=== PATIENT | female | born 1995 | race African-American/Black ===

== ENCOUNTER 2016-12-24 13:09 | Emergency (ER) | payer OTHER ==
[2016-12-24 13:16] VITALS: BP 113/68; PULSE 78; TEMP 97.7; BMI 29.8
--- NOTE | 2016-12-24 14:12 | PDOC ---
History of Present Illness - General Chief Complaint: Back Pain Stated Complaint: BACK PAIN Time Seen by Provider: 12/24/16 14:11 History Source: Patient Exam Limitations: No Limitations - History of Present Illness Initial Comments: 12/24/16 14:26 Chief complaint: Right sided back pain from under shoulder blade to lower back since yesterday with muscle spasms History of present illness: She is a 21-year-old female with no significant medical history here today complaining of right-sided lower back pain from under her shoulder blade down to to her lower back without radiation down her legs. 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 Patient denies any radiation of pain down the legs or any saddle anesthesia or any incontinency. Patient reports that she's had this in the past. Patient reports that she feels spasming of the muscle on her right side of her back. Patient did not take anything for pain today. Patient reports that she took some Aleve yesterday with minimal relief of pain. Occurred: reports: yesterday Severity: reports: moderate Pain Location: reports: back (rt. sided from under thoracic to lumb) Method of Injury: Yes: other (lifting heavy bags at work ) Modifying Factors: improves with: None Loss of Consciousness: no loss of consciousness Associated Symptoms (Fall): muscle spasms (rt. paraspinal muscles thoracic to lumbar) Past History - Past Medical History Allergies/Adverse Reactions: Allergies Allergy/AdvReac Type Severity Reaction Status Date / Time No Known Allergies Allergy Verified 12/24/16 13:16 Home Medications: Ambulatory Orders Cyclobenzaprine HCl [Flexeril 10 mg] 10 mg PO Q8H PRN #20 tablet 12/24/16 Naproxen [Naprosyn -] 500 mg PO BID PRN #14 tablet 12/24/16 Asthma: No Cancer: No Cardiac Disorders: No Diabetes: No HTN: No Seizures: No Thyroid Disease: No - Psycho/Social/Smoking Cessation Hx Anxiety: No Suicidal Ideation: No Smoking History: Never smoked Have you smoked in the past 12 months: No Hx Alcohol Use: No Drug/Substance Use Hx: No Substance Use Type: None Hx Substance Use Treatment: No Review of Systems - Review of Systems Able to Perform ROS?: Yes Constitutional: No: Symptoms Reported HEENTM: No: Symptoms Reported Respiratory: No: Symptoms reported Cardiac (ROS): No: Symptoms Reported ABD/GI: No: Symptoms Reported : No: Symptoms Reported Musculoskeletal: Yes: Back Pain (right sided back pain with muscle spasm thoracic to lumbar) Integumentary: No: Symptoms Reported Neurological: No: Symptoms reported *Physical Exam - Vital Signs Last Vital Signs Temp Pulse Resp BP Pulse Ox 97.7 F 78 18 113/68 99 12/24/16 13:14 12/24/16 13:14 12/24/16 13:14 12/24/16 13:14 12/24/16 13:14 - Physical Exam General Appearance: Yes: Appropriately Dressed Respiratory/Chest: positive: Lungs Clear, Normal Breath Sounds. negative: Chest Tender, Respiratory Distress Cardiovascular: positive: Regular Rhythm, Regular Rate, S1, S2 Musculoskeletal: positive: Normal Inspection, Decreased Range of Motion (from waist ), Muscle Spasm (rt. paraspinal muscles fom thoracic to lumbar). negative : CVA Tenderness, CVA Tenderness (R), CVA Tenderness (L), Vertebral Tenderness Integumentary: positive: Normal Color Neurologic: positive: Alert, Normal Response, Motor Strength 5/5 (legs b/l ), Respond to painful stimul (b/l ), Other (negative SLR b/l ). negative: Numbness , Sensory Deficit Medical Decision Making - Medical Decision Making 12/24/16 14:30 She is a 21-year-old female with no significant medical history here today complaining of right-sided lower back pain from under her shoulder blade down to to her lower back without radiation down her legs. 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 Patient denies any radiation of pain down the legs or any saddle anesthesia or any incontinency. Patient reports that she's had this in the past. Patient reports that she feels spasming of the muscle on her right side of her back. Patient did not take anything for pain today. Patient reports that she took some Aleve yesterday with minimal relief of pain. rt. sided back pain from thoracic to lumbar with spasms of pain from spinal muscle PLAN: Urine hCG negative flexeril 10 mg po now than every 8 hrs prn muscle spasm naprosyn 500 mg po now than q 12 hrs prn pain follow up with ortho 12/24/16 14:56 12/24/16 15:01 *DC/Admit/Observation/Transfer Diagnosis at time of Disposition: Back pain Qualifiers: Back pain location: low back pain Chronicity: acute Back pain laterality: right Sciatica presence: without sciatica Qualified Code(s): M54.5 - Low back pain Acute thoracic back pain Qualifiers: Back pain laterality: right Qualified Code(s): M54.6 - Pain in thoracic spine - Discharge Dispostion Disposition: HOME Condition at time of disposition: Stable - Prescriptions Prescriptions: Cyclobenzaprine HCl [Flexeril 10 mg] 10 mg PO Q8H PRN #20 tablet PRN Reason: Moderate Pain Naproxen [Naprosyn -] 500 mg PO BID PRN #14 tablet PRN Reason: Pain - Referrals Referrals: Kenji Jones MD [Staff Physician] - - Patient Instructions Additional Instructions: Avoid any strenuous activity or lifting anything Follow-up with orthopedist if pain continues this week Return to emergency room if symptoms worsen any numbness of the legs or groin Patient voiced understanding of discharge instructions and all questions were answered
[2016-12-24] MEDS ORDERED: CYCLOBENZAPRINE HCL 10 MG TABLET (FP) PO ONE (14:52)
[2016-12-24] MEDS ORDERED: NAPROXEN 500 MG TABLET (FP) PO ONE (14:52)
[2016-12-24] MEDS ORDERED: NAPROXEN 500 MG TABLET (FP) ONE (14:54)
[2016-12-24] MEDS ORDERED: CYCLOBENZAPRINE HCL 10 MG TABLET (FP) ONE (14:54)
== END 2016-12-24 15:04 | disposition home or self-care (01) ==
LOC: JERFT 13:09
DX: M54.5 Low back pain (principal); X50.0XXA Overexertion from strenuous movement or load, initial encounter; Y93.89 Activity, other specified; Y92.512 Supermarket, store or market as the place of occurrence of the external cause; Y99.0 Civilian activity done for income or pay
CPT/HCPCS: 84703; 99281-25

== ENCOUNTER 2017-02-20 13:19 | Emergency (ER) | payer OTHER ==
[2017-02-20 13:23] VITALS: BP 130/76; PULSE 90; TEMP 98; BMI 29.9
[2017-02-20] MEDS ORDERED: DEXAMETHASONE 4 MG TABLET (FP) PO STA (13:58)
[2017-02-20] MEDS ORDERED: DEXAMETHASONE SOD PHOSPHATE 10 MG/1 ML VIAL ONE (14:02)
--- NOTE | 2017-02-20 14:09 | PDOC ---
[id number] 4d THROAT PAIN Time Seen by Provider: 02/20/17 13:44 History Source: Patient Exam Limitations: No Limitations - History of Present Illness Initial Comments: 02/20/17 14:02 c/o sore throat enlarged tonsils for one week. Pt states often has tonsilar stones and enlarged tonsils. no fever, no diff swallowing. Timing/Duration: 1 week Severity: mild Past History - Past Medical History Allergies/Adverse Reactions: Allergies Allergy/AdvReac Type Severity Reaction Status Date / Time No Known Allergies Allergy Verified 02/20/17 13:22 Home Medications: Ambulatory Orders Cyclobenzaprine HCl [Flexeril 10 mg] 10 mg PO Q8H PRN #20 tablet 12/24/16 Naproxen [Naprosyn -] 500 mg PO BID PRN #14 tablet 12/24/16 Asthma: No Cancer: No Cardiac Disorders: No Diabetes: No HTN: No Seizures: No Thyroid Disease: No - Psycho/Social/Smoking Cessation Hx Anxiety: No Suicidal Ideation: No Smoking History: Never smoked Have you smoked in the past 12 months: No Information on smoking cessation initiated: No Hx Alcohol Use: No Drug/Substance Use Hx: No Substance Use Type: Alcohol Hx Substance Use Treatment: No Review of Systems - Review of Systems Able to Perform ROS?: Yes Is the patient limited Armenian proficient: No Constitutional: No: Symptoms Reported HEENTM: Yes: See HPI Respiratory: No: See HPI Cardiac (ROS): No: Symptoms Reported ABD/GI: No: Symptoms Reported : No: Symptoms Reported Musculoskeletal: No: Symptoms Reported Integumentary: No: Symptoms Reported Neurological: No: Symptoms reported *Physical Exam - Vital Signs Last Vital Signs Temp Pulse Resp BP Pulse Ox 98 F 90 18 130/76 100 02/20/17 13:22 02/20/17 13:22 02/20/17 13:22 02/20/17 13:22 02/20/17 13:22 - Physical Exam General Appearance: Yes: Nourished, Appropriately Dressed HEENT: positive: EOMI, MINGO, TMs Normal, Tonsillar Erythema, Other (right tonsilar stone) Neck: positive: Supple, Lymphadenopathy (L) Respiratory/Chest: positive: Lungs Clear, Normal Breath Sounds Cardiovascular: positive: Regular Rhythm, Regular Rate Gastrointestinal/Abdominal: positive: Normal Bowel Sounds, Soft Musculoskeletal: positive: Normal Inspection Extremity: positive: Normal Capillary Refill, Normal Inspection, Normal Range of Motion Integumentary: positive: Normal Color, Dry, Warm Neurologic: positive: Fully Oriented, Alert, Normal Mood/Affect, Normal Response , Motor Strength 5/5 Medical Decision Making - Medical Decision Making 02/20/17 14:03 cc: 21 yr female with tonsils enlarged no fever, no diff swallowing or speaking will swab for strep decadron for swelling follow up with ENT 02/20/17 14:50 negative strep 02/21/17 17:15 *DC/Admit/Observation/Transfer Diagnosis at time of Disposition: Acute tonsillitis Qualifiers: Pharyngitis/tonsillitis etiology: unspecified etiology Qualified Code(s): J03.90 - Acute tonsillitis, unspecified - Discharge Dispostion Disposition: HOME Condition at time of disposition: Good - Referrals Referrals: Merlin Becker MD [Staff Physician] - - Patient Instructions Additional Instructions: follow with the ENT float nurse for follow up gargle with warm salt water 4-5 times a day sour lemon candies area also helpful take motrin as needed the steroid given today will last for the next 3 days and will help with swelling Return if any worsening symptoms - Post Discharge Activity Work/School Note: Back to Work
== END 2017-02-20 14:55 | disposition home or self-care (01) ==
LOC: JERFT 13:19
DX: J03.90 Acute tonsillitis, unspecified (principal)
CPT/HCPCS: 87070; 87077; 87430; 99281-25

== ENCOUNTER 2018-01-18 17:02 | Emergency (ER) | payer OTHER ==
[2018-01-18 17:06] VITALS: BP 137/81; PULSE 98; TEMP 99.3; BMI 30.2
[2018-01-18] MEDS ORDERED: ALBUTEROL SO4 2.5/IPRATROPIUM 0.5 INH SOL 3 ML VIAL.NEB. NEB ONE ×3 (17:08→20:00)
--- NOTE | 2018-01-18 17:08 | PDOC ---
Rapid Medical Evaluation Time Seen by Provider: 01/18/18 17:03 Medical Evaluation: Allergies Allergy/AdvReac Type Severity Reaction Status Date / Time No Known Allergies Allergy Verified 01/18/18 17:03 01/18/18 17:03 The patient presents with a chief complaint of: 5 days of sore throat, headache , productive cough and chest pain. Chest pain reproducible with cough. Feels " a little short of breath". I have performed a brief in-person evaluation of this patient; Pertinent physical exam findings: ambulatory, in no respiratory distress. Lung sounds clear, but a little tight. I have ordered the following: Duoneb The patient will proceed to the ED for further evaluation.
[2018-01-18] MEDS ORDERED: IBUPROFEN 600 MG TABLET (FP) PO ONE ×2 (19:12→19:13)
[2018-01-18] MEDS ORDERED: predniSONE 20 MG TABLET (UD) ONE (19:12)
[2018-01-18] MEDS ORDERED: predniSONE 20 MG TABLET (UD) PO ONE (19:13)
[2018-01-18] MEDS ORDERED: ALBUTEROL SO4 0.083% IH SOL 2.5 MG/3 ML VIAL.NEB. NEB ONE ×2 (19:13→19:41)
--- NOTE | 2018-01-18 19:19 | PDOC ---
History of Present Illness - General Chief Complaint: Cold Symptoms Stated Complaint: CHEST PAIN Time Seen by Provider: 01/18/18 17:03 History Source: Patient Exam Limitations: No Limitations - History of Present Illness Initial Comments: 01/18/18 19:14 Here with complaints of cough, chills, pleuritic chest pain 5 days. States has not had known fever however has felt warm. Has no phlegm but cough is progressively worsening. mild sore throat pain. He has excessive posterior sinus drainage. No one else at home is sick. 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 Timing/Duration: reports: getting worse Severity: reports: mild, moderate Modifying Factors: improves with: activity Associated Symptoms: reports: denies symptoms, cough, dizziness, fever/chills, nasal congestion, nasal drainage Past History - Travel Traveled outside of the country in the last 30 days: No Close contact w/someone who was outside of country & ill: No - Past Medical History Allergies/Adverse Reactions: Allergies Allergy/AdvReac Type Severity Reaction Status Date / Time No Known Allergies Allergy Verified 01/18/18 17:03 Home Medications: Ambulatory Orders Albuterol 0.083% Nebulizer María [Ventolin 0.083% Nebulizer Soln -] 1 neb NEB Q4H PRN #30 vial 01/18/18 NK [No Known Home Medication] 01/18/18 predniSONE [Deltasone -] 20 mg PO BID #8 tablet 01/18/18 Asthma: No Cancer: No Cardiac Disorders: No COPD: No DVT: No Diabetes: No HTN: No Seizures: No Thyroid Disease: No - Suicide/Smoking/Psychosocial Hx Smoking History: Never smoked Have you smoked in the past 12 months: No Information on smoking cessation initiated: No Hx Alcohol Use: No Drug/Substance Use Hx: No Substance Use Type: Alcohol Hx Substance Use Treatment: No Review of Systems - Review of Systems Able to Perform ROS?: Yes Is the patient limited Pakistani proficient: Yes Constitutional: Yes: Symptoms Reported, See HPI, Fever, Loss of Appetite, Malaise HEENTM: Yes: Symptoms Reported, See HPI, Nose Congestion, Throat Pain Respiratory: Yes: Symptoms reported, See HPI, Cough, Orthopnea, Wheezing ABD/GI: No: Symptoms Reported : No: Symptoms Reported All Other Systems: Reviewed and Negative *Physical Exam - Vital Signs Last Vital Signs Temp Pulse Resp BP Pulse Ox 99.3 F 98 H 18 137/81 100 01/18/18 17:04 01/18/18 17:04 01/18/18 17:04 01/18/18 17:04 01/18/18 17:04 - Physical Exam General Appearance: Yes: Nourished, Appropriately Dressed, Apparent Distress, Mild Distress HEENT: positive: MINGO, Normal ENT Inspection, TMs Normal, Pharynx Normal Neck: positive: Supple Respiratory/Chest: positive: Lungs Clear, Normal Breath Sounds, Wheezing (right into toward expiratory breath sounds, deep inspiration reproduces cough that is moist nonproductive.) Gastrointestinal/Abdominal: positive: Normal Bowel Sounds, Soft. 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, Fully Oriented, Alert, Normal Mood/ Affect, Normal Response, Motor Strength 02/23 ED Treatment Course - Medications Given in the ED: ED Medications Discontinued Medications Generic Name Dose Route Start Last Admin Trade Name Andie PRN Reason Stop Dose Admin Albuterol/Ipratropium 1 amp 01/18/18 17:08 01/18/18 17:09 Duoneb - NEB 01/18/18 17:09 1 amp ONCE ONE Administration Progress Note - Progress Note Progress Note: Upper respiratory infection, probable viral area will treat with DuoNeb nebs and short course of prednisone *DC/Admit/Observation/Transfer Diagnosis at time of Disposition: Upper respiratory infection, viral - Discharge Dispostion Disposition: HOME Condition at time of disposition: Stable Admit: No - Referrals - Patient Instructions Printed Discharge Instructions: DI for Viral Upper Respiratory Infection -- Adult Additional Instructions: Rest, drink lots of fluids: Teas, water, soups, Pedialyte Saltwater gargles Steamy showers/seem to face break up mucus Avoid contact with others until fevers and cough resolved Lots of handwashing and good hygiene Continue [id number] medications for symptomatic relief Tylenol or Motrin for fever and pain Continue albuterol nebulizers every 4-6 hours for the next 2 days then as needed for continued cough Prednisone as directed until completed Followup with private physician in one to 2 days Return to emergency department / pediatric hospital for worsened symptoms, fevers, dehydration - Post Discharge Activity Forms/Work/School Notes: Back to Work
== END 2018-01-18 20:03 | disposition home or self-care (01) ==
LOC: JERFT 17:02
PROC: 3E0F7GC Introduction of Other Therapeutic Substance into Respiratory Tract, Via Natural or Artificial Opening (ICD-10-PCS; principal; 2018-01-18)
DX: J06.9 Acute upper respiratory infection, unspecified (principal); B97.89 Other viral agents as the cause of diseases classified elsewhere
CPT/HCPCS: 99281-25

== ENCOUNTER 2018-07-26 16:17 | Emergency (ER) | payer OTHER ==
--- NOTE | 2018-07-26 16:32 | PDOC ---
Rapid Medical Evaluation Chief Complaint: Pain, Acute Time Seen by Provider: 07/26/18 16:31 Medical Evaluation: Allergies Allergy/AdvReac Type Severity Reaction Status Date / Time No Known Allergies Allergy Verified 07/26/18 16:31 07/26/18 16:32 I have performed a brief in person evaluation of this patient The patient presents with a chief complaint of 9/10 R shoulder pain for a day, denies trauma. Pertinent physical exam findings: In NAD, Pain with ROM R shoulder. Good radial pulse I have ordered the following: R shoulder xray, UCG The patient will proceed to the ED for further eval 07/26/18 16:34 Discharge Disposition - Diagnosis Shoulder pain, right - Referrals - Patient Instructions - Post Discharge Activity
[2018-07-26 16:47] VITALS: BP 118/77; PULSE 94; TEMP 98.3; BMI 30.2
--- NOTE | 2018-07-26 16:50 | PDOC ---
History of Present Illness - General Chief Complaint: Pain, Acute Stated Complaint: RT ARM PAIN Time Seen by Provider: 07/26/18 16:31 History Source: Patient Exam Limitations: No Limitations - History of Present Illness Initial Comments: CHIEF COMPLAINT: 23 y/o afebrile female with atraumatic right shoulder pain since yesterday. HISTORY OF PRESENT ILLNESS: She states that with certain movements she gets a pain in her right shoulder that radiates up to her neck. She denies trauma, fall, numbness/tingling. Vital signs on arrival are within normal limits. REVIEW OF SYSTEMS: GENERAL/CONSTITUTIONAL: No fever/chills. No weakness. No weight change. MUSCULOSKELETAL: +right shoulder pain. +right sided neck pain. No back pain. SKIN: No rash or easy bruising. NEUROLOGIC: No headache, vertigo, loss of consciousness, or loss of sensation. PHYSICAL EXAM: VITAL_SIGNS: within normal limits GENERAL_APPEARANCE: alert, cooperative, no obvious discomfort. MENTAL_STATUS: speech clear, oriented X 3, responds appropriately to questions. NEURO: motor intact and sensory intact in injured extremity. EXTREMITIES: good pulse in injured extremity. Full flexion, extension, abduction and adduction of right arm. No pain with palpation of right AC joint. No obvious deformity or displacement. Pain reproduced with palpation of right trap muscle. SKIN: warm, dry, good color. Past History - Past Medical History Allergies/Adverse Reactions: Allergies Allergy/AdvReac Type Severity Reaction Status Date / Time No Known Allergies Allergy Verified 07/26/18 16:35 Home Medications: Ambulatory Orders NK [No Known Home Medication] 07/26/18 Asthma: No Cancer: No Cardiac Disorders: No CVA: No COPD: No DVT: No Diabetes: No HTN: No Seizures: No Thyroid Disease: No - Suicide/Smoking/Psychosocial Hx Smoking History: Never smoked Have you smoked in the past 12 months: No Information on smoking cessation initiated: No Hx Alcohol Use: No Drug/Substance Use Hx: No Substance Use Type: Alcohol Hx Substance Use Treatment: No *Physical Exam - Vital Signs Last Vital Signs Temp Pulse Resp BP Pulse Ox 98.3 F 94 H 16 118/77 100 07/26/18 16:31 07/26/18 16:31 07/26/18 16:31 07/26/18 16:31 07/26/18 16:31 Medical Decision Making - Medical Decision Making A/P: 23 y/o female with musculoskeletal pain of right neck/shoulder. Plan is as follows: 1. hcg 2. Xray right shoulder hcg - negative xray right shoulder IMPRESSION: No acute right shoulder pathology. Patient was given results. Suggested she ice area, take ibuprofen for pain and stretch. The patient verbalizes understanding of all instructions, has no further questions and is awaiting discharge. *DC/Admit/Observation/Transfer Diagnosis at time of Disposition: Shoulder pain, right Qualifiers: Chronicity: acute Qualified Code(s): M25.511 - Pain in right shoulder - Discharge Dispostion Disposition: HOME Condition at time of disposition: Good - Referrals - Patient Instructions Printed Discharge Instructions: DI for Shoulder Sprain, How To Perform RICE ( Rest, Ice, Compress, Elevate) Additional Instructions: Discharge Instructions: -The xray of your shoulder was normal -You pulled a muscle in your neck and shoulder -Take 600mg of over the counter Ibuprofen every 6 hours for pain if needed -Follow RICE instructions - Post Discharge Activity Forms/Work/School Notes: Back to Work
== END 2018-07-26 17:25 | disposition home or self-care (01) ==
LOC: JER 16:17
DX: M25.511 Pain in right shoulder (principal)
CPT/HCPCS: 73030-TC-RT-FY; 84703; 99281-25

== ENCOUNTER 2019-02-08 12:45 | Emergency (ER) | payer OTHER ==
[2019-02-08 12:51] VITALS: BP 112/72; PULSE 93; TEMP 98.7; BMI 32.0
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
== END 2019-02-08 13:42 | disposition home or self-care (01) ==
LOC: JER 12:45 → JERFT 12:45
DX: S50.02XA Contusion of left elbow, initial encounter (principal); V86.59XA Driver of other special all-terrain or other off-road motor vehicle injured in nontraffic accident, initial encounter; Y93.89 Activity, other specified; Y92.89 Other specified places as the place of occurrence of the external cause; Y99.8 Other external cause status
CPT/HCPCS: 73070-TC-LT-FY; 99281-25

== ENCOUNTER 2020-06-29 12:48 | Emergency (ER) | payer OTHER ==
[2020-06-29 12:52] VITALS: BP 136/85; PULSE 71; TEMP 98.6; BMI 33.0
[2020-06-29] MEDS ORDERED: METHOCARBAMOL 500 MG TABLET PO ONE (12:54)
--- NOTE | 2020-06-29 12:54 | PDOC ---
Rapid Medical Evaluation Chief Complaint: Back Pain Time Seen by Provider: 06/29/20 12:50 Medical Evaluation: Allergies Allergy/AdvReac Type Severity Reaction Status Date / Time No Known Allergies Allergy Verified 06/29/20 12:50 06/29/20 12:52 I have performed a brief in-person evaluation of this patient. The patient presents with a chief complaint of: left lower back x 2 days which she describes as spasm. had similar episode last year and MRI done here was normal. has not taken anything for pain. Denies radiculopathy Pertinent physical exam findings: mild TTP to left paravertebral of Lumbar spine I have ordered the following: Toradol, Robaxin The patient will proceed to the ED for further evaluation. Discharge Disposition - Diagnosis Back pain Qualifiers: Back pain location: low back pain Chronicity: acute Back pain laterality: left Sciatica presence: without sciatica Qualified Code(s): M54.5 - Low back pain - Discharge Dispostion Condition at time of disposition: Stable - Referrals - Patient Instructions - Post Discharge Activity
[2020-06-29] MEDS ORDERED: KETOROLAC TROMETHAMINE 30 MG/1 ML VIAL IM ONE (12:55)
[2020-06-29] MEDS ORDERED: KETOROLAC TROMETHAMINE 30 MG/1 ML VIAL ONE (13:21)
[2020-06-29] MEDS ORDERED: METHOCARBAMOL 500 MG TABLET ONE (13:21)
--- NOTE | 2020-06-29 13:24 | PDOC ---
History of Present Illness - General Chief Complaint: Back Pain Stated Complaint: BACK PAIN Time Seen by Provider: 06/29/20 12:50 History Source: Patient Exam Limitations: No Limitations - History of Present Illness Initial Comments: 06/29/20 13:19 25 year old female with no significant medical or surgical history present with left lower back pain x 3 days. 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 Described pain is sharp and non radiating into buttocks or lower leg. Took advil yesterday for pain with some relief, states pain is worse today preventing her from walking. Denies fall, heavy lifting or injury. Also states no burning, frequency with urination and no retention of urine. Had same pain one year ago, seen by neurologist, had cat scan and mri with normal results. Has follow up neurology exam scheduled. Occurred: reports: other (3 days ago ) Severity: reports: moderate Pain Location: reports: back Method of Injury: Yes: unknown Modifying Factors: improves with: immobilization, pain medication Loss of Consciousness: no loss of consciousness Associated Symptoms (Fall): muscle spasms Past History - Travel History Traveled outside of the country in the last 30 days: No Close contact w/someone who was outside of country & ill: No - Medical History Allergies/Adverse Reactions: Allergies Allergy/AdvReac Type Severity Reaction Status Date / Time No Known Allergies Allergy Verified 06/29/20 12:50 Home Medications: Ambulatory Orders Ibuprofen 600 mg PO QID #20 tablet 06/29/20 Methocarbamol [Robaxin -] 750 mg PO QID #12 tablet 06/29/20 Asthma: No Cancer: No Cardiac Disorders: No CVA: No COPD: No DVT: No Diabetes: No HTN: No Seizures: No Thyroid Disease: No - Reproductive History Is Patient Now?: No - Immunization History Immunization Up to Date: No - Psycho-Social/Smoking History Smoking History: Never smoked Have you smoked in the past 12 months: No - Substance Abuse Hx (Audit-C & DAST Scrn) How often the patient has a drink containing alcohol: Never Score: In Men: 4 or > Positive; In Women: 3 or > Positive: 0 Screen Result (Pos requires Nsg. Audit-10AR): Negative In the last yr the pt used illegal drug/Rx for NonMed reason: No Score: Yes response is considered Positive: 0 Screen Result (Positive result requires Nsg. DAST-10): Negative Trauma Specific PMHX - Complaint Specific PMHX Arthritis: No Back Injury: No Neck Injury: No Hx Sacro Iliac Joint Dysfunction: No Review of Systems - Review of Systems Able to Perform ROS?: Yes Is the patient limited Thai proficient: No Constitutional: No: Chills, Fever HEENTM: No: Nose Congestion, Tinnitus, Hearing Loss, Throat Pain Respiratory: No: Orthopnea, Shortness of Breath, Wheezing Cardiac (ROS): No: Edema, Lightheadedness ABD/GI: No: Abdominal Distended, Nausea, Poor Appetite, Vomiting Musculoskeletal: Yes: Back Pain, Muscle Pain, Muscle Weakness Integumentary: No: Bruising Neurological: No: Numbness, Paresthesia *Physical Exam - Vital Signs Last Vital Signs Temp Pulse Resp BP Pulse Ox 98.6 F 71 20 136/85 100 06/29/20 12:50 06/29/20 12:50 06/29/20 12:50 06/29/20 12:50 06/29/20 12:50 - Physical Exam General Appearance: Yes: Nourished. No: Appropriately Dressed HEENT: positive: Pharynx Normal Neck: positive: Supple. 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 Discharge - Discharge Information Problems reviewed: Yes Clinical Impression/Diagnosis: Back pain Qualifiers: Back pain location: low back pain Chronicity: acute Back pain laterality: left Sciatica presence: without sciatica Qualified Code(s): M54.5 - Low back pain Condition: Stable Disposition: HOME - Admission No - Additional Discharge Information Prescriptions: Ibuprofen 600 mg PO QID #20 tablet Methocarbamol [Robaxin -] 750 mg PO QID #12 tablet - Follow up/Referral - Patient Discharge Instructions Patient Printed Discharge Instructions: DI for Low Back Pain Additional Instructions: Activity as tolerated May apply warm compress 4 times daily Take medication as prescribed follow up with neurologist as previously scheduled. - Post Discharge Activity Work/Back to School Note: Back to Work
[2020-06-29 13:53] LABS: EPI CELLS >36 /uL (0-25.1); HYALINE CASTS 5 /uL (0-3.1); PH,URINE 6.5 (5.0-8.0); URINE APPEARANCE CLOUDY; URINE BACTERIA 657 /uL (0-1359); URINE BILIRUBIN NEGATIVE (NEGATIVE); URINE COLOR YELLOW; URINE GLUCOSE (UA) NEGATIVE (NEGATIVE); URINE KETONE NEGATIVE (NEGATIVE); URINE LEUK ESTERASE 1+ (NEGATIVE); URINE NITRITE NEGATIVE (NEGATIVE); URINE PROTEIN NEGATIVE (NEGATIVE); URINE RBC 17 /uL (0-23.9); URINE WBC 71 /uL (0-25.8)
[2020-06-29 13:58] LABS: HCG,QUALITATIVE URINE Negative
== END 2020-06-29 14:42 | disposition home or self-care (01) ==
LOC: JERFT 12:48
PROC: 3E0233Z Introduction of Anti-inflammatory into Muscle, Percutaneous Approach (ICD-10-PCS; principal; 2020-06-29)
DX: M54.5 Low back pain (principal)
CPT/HCPCS: 81003; 84703; 87077; 87086; 99284-25

== ENCOUNTER 2021-04-15 08:22 | Emergency (ER) | payer OTHER ==
[2021-04-15 08:35] VITALS: BP 119/84; PULSE 75; TEMP 97.8; BMI 24.1
[2021-04-15] MEDS ORDERED: KETOROLAC TROMETHAMINE 30 MG/1 ML VIAL IM ONE (08:51)
[2021-04-15] MEDS ORDERED: LIDOCAINE 5% TOPICAL PATCH TP ONE (08:52)
[2021-04-15] MEDS ORDERED: LIDOCAINE 5% TOPICAL PATCH ONE ×2 (08:54→08:56)
[2021-04-15] MEDS ORDERED: KETOROLAC TROMETHAMINE 15 MG/ML VIAL ONE ×2 (08:55→08:56)
[2021-04-15] MEDS ORDERED: LIDOCAINE PATCH REMOVAL MC ONE (22:00)
== END 2021-04-15 09:38 | disposition home or self-care (01) ==
LOC: JER 08:22
PROC: 3E0233Z Introduction of Anti-inflammatory into Muscle, Percutaneous Approach (ICD-10-PCS; principal; 2021-04-15)
DX: M43.6 Torticollis (principal)
CPT/HCPCS: 99284-25